=== PATIENT | male | born 1940 | race Caucasian/White ===

== ENCOUNTER 2017-01-12 12:44 | Day surgery (SDC) | payer MEDICARE, BC ==
[2017-01-12 12:53] VITALS: BP 107/64
== END 2017-01-12 12:45 | disposition home or self-care (01) ==
LOC: AMB 12:44
PROVIDERS: ATTEND Ophthalmology
PROC: 085J3ZZ Destruction of Right Lens, Percutaneous Approach (ICD-10-PCS; principal; 2017-01-12 13:00)
DX: H26.491 Other secondary cataract, right eye (principal); F41.9 Anxiety disorder, unspecified

== ENCOUNTER 2017-02-10 08:52 | Emergency (ER) | payer MEDICARE, BC ==
[2017-02-10 10:02] VITALS: BP 90/56
--- NOTE | 2017-02-10 10:18 | ERNOTE ---
Upper Extremity HPI - General Extremities Pain Location: shoulder: right, arm: right Time Seen by Provider: 02/10/17 09:20 Source: patient, family Exam Limitations: no limitations - Immun/Allergies/Home Medications Immunizations: IMMUNIZATION HX Immunizations Up to Date Yes History of Influenza Vaccine Yes Hx Pneumococcal Vaccination Yes Allergies/Adverse Reactions: Allergies Allergy/AdvReac Type Severity Reaction Status Date / Time No Known Allergies Allergy Verified 02/10/17 09:13 Home Medications: HOME MEDICATIONS Aspirin [Aspir-Low] 81 mg PO DAILY 02/10/17 [Last Taken Unknown] Docusate Sodium [Stool Softener] 50 mg PO DAILY 02/10/17 [Last Taken Unknown] Levothyroxine Sodium [Synthroid] 25 mcg PO DAILY 02/10/17 [Last Taken Unknown] Naproxen [Naprosyn] 500 mg PO BID #60 tablet 02/10/17 [Last Taken Unknown] Oxybutynin Chloride [Ditropan] 5 mg PO DAILY 02/10/17 [Last Taken Unknown] Ranitidine HCl [Acid Phlebotomy Director] 75 mg PO DAILY 02/10/17 [Last Taken Unknown] Simvastatin [Zocor] 5 mg PO HS 02/10/17 [Last Taken Unknown] - History of Present Illness Narrative: Patient was walking his dog and the dog saw squirrel took off running and jerked his right arm. Patient now has pain in the right deltoid area as well as down into the biceps muscle. Occurred: yesterday Location of Incident: home Severity: moderate Method of Injury: Reports: other - jerking motion Loss of Consciousness: Reports: no loss of consciousness Other Injuries: Reports: none Review of Systems - Review of Systems Constitutional: Present: See HPI EYE: Present: no symptoms reported ENT: Present: no symptoms reported Respiratory: Present: no symptoms reported Cardiology: Present: no symptoms reported Gastrointestinal/Abdominal: Present: no symptoms reported Genitourinary: Present: no symptoms reported Musculoskeletal: Present: See HPI, muscle pain Skin: Present: no symptoms reported Neurological: Present: no symptoms reported Endocrine: Present: no symptoms reported Hematologic/Lymphatic: Present: no symptoms reported Psych: Present: no symptoms reported - Patient's Past Medical History Patient History - Medical: Hypothyroidism Patient History - Cardiac/Respiratory: Myocardial Infarction Patient History - Cancer: Prostate, Thyroid Patient History - Surgical Procedures: Cardiac stent Patient History - Other: None - Social History Living Situations: home Psych History: No pertinent hx Alcohol Use: none Drug Use: none - Immunizations Immunizations Up to Date: Yes Hx Pneumococcal Vaccination: Yes History of Influenza Vaccine: Yes Physical Exam - Physical Exam General Appearance: Present: wd/wn, alert, moderate distress Head Exam: Present: normal inspection Eye Exam: Normal inspection: bilateral, PERRL: bilateral Ears, Nose, Throat: Present: normal ENT inspection, H, normal pharynx Neck: Present: normal inspection, nontender Respiratory: Present: no respiratory distress, normal breath sounds, no accessory muscle use, chest nontender, lungs clear Cardiovascular/Chest: Present: regular rate, rhythm, no murmur, normal peripheral pulses Gastrointestinal/Abdominal: Present: normal bowel sounds, nontender, nondistended, soft, no organomegaly Rectal Exam: Present: deferred Back Exam: Present: normal inspection, normal range of motion Extremity Exam: Present: no edema, decreased range of motion, other - patient is having difficulty with both internal and external rotation of the right shoulder with palpable tenderness into the right biceps and deltoid muscle as well as some tenderness in the right triceps Neurological Exam: Present: alert, oriented, normal mood/affect Skin Exam: Present: normal color, warm/dry Lymphatic Exam: Present: no adenopathy ED Progress - Results and Orders Patient's Lab Results:: I have reviewed the patient's lab results. - Vital Signs Patient's Vital Signs:: I have reviewed the patient's vital signs. Vital Signs: Vital Signs 02/10/17 02/10/17 09:04 09:59 Temperature 36 C L 36.1 C L Pulse Rate 62 62 Respiratory 12 12 Rate Blood Pressure 107/59 90/56 O2 Sat by Pulse 98 97 Oximetry - X-Ray X-Ray #1 X-Ray: shoulder Interpretation: Reviewed by me X-Ray #2 X-Ray: humerus Interpretation: Reviewed by me - Progress/Reassessment Chief Complaint: Upper Extremity Injury/Problem Plan - Plan Plan: Patient will be given a sling and started on nonsteroidal medications and he'll follow-up with his family physician within a week. We discussed a possible orthopedic referral and that determination will be made by the family doctor. Departure Clinical Impression: Muscle strain, upper arm Qualifiers: Encounter type: initial encounter Laterality: right Qualified Code(s): S46.911A - Strain of unspecified muscle, fascia and tendon at shoulder and upper arm level, right arm, initial encounter - Departure Disposition: Home self-care Condition: Good Instructions: Muscle Strain, [id number] Referrals: Lia Ferrer FNP [Primary Care Provider] - Prescriptions: Naproxen [Naprosyn] 500 mg PO BID #60 tablet
== END 2017-02-10 10:25 | disposition home or self-care (01) ==
LOC: ER 08:52
DX: S46.911A Strain of unspecified muscle, fascia and tendon at shoulder and upper arm level, right arm, initial encounter (principal); E03.9 Hypothyroidism, unspecified; I25.2 Old myocardial infarction; Z85.46 Personal history of malignant neoplasm of prostate; Z85.850 Personal history of malignant neoplasm of thyroid; X58.XXXA Exposure to other specified factors, initial encounter; Y93.K1 Activity, walking an animal; Y92.007 Garden or yard of unspecified non-institutional (private) residence as the place of occurrence of the external cause